=== PATIENT | female | born 1955 | race Caucasian/White ===

== ENCOUNTER → 2017-04-29 | Outpatient (CLI) | payer BC | END | disposition home or self-care (01) | LOC: RAD 08:14 | DX: M25.561 Pain in right knee (principal) ==

== ENCOUNTER → 2019-01-04 | Outpatient (CLI) | payer BC | END | disposition home or self-care (01) | LOC: MAMMO 12-28 10:20 → RAD 12-28 11:00 → MAMMO 09:58 | DX: Z12.31 Encounter for screening mammogram for malignant neoplasm of breast (principal); M19.91 Primary osteoarthritis, unspecified site; E55.9 Vitamin D deficiency, unspecified; Z78.0 Asymptomatic menopausal state ==

== ENCOUNTER → 2020-03-19 | Outpatient (CLI) | payer MEDICARE ==
[~2020-03-19] MED LIST: ASPIRIN81 M1 PO; GLUCOPHAGE500 M1 PO; HYDROCHLOROTHIA25 M1 PO; LEVOTHYROXINE50 MCG PO; OYSTER SHELL 51 EAC1 PO; POTASSIUM CHLO10 MEQ PO; VITAMIN D250 MCG PO
--- NOTE | 2020-03-19 10:30 | NUR ---
INFORMED SIGNED CONSENT OBTAINED FOR CARDIOLITE NUCLEAR STRESS TEST WITH DR MATTHEWS, RESTING EKG NSR HR 69 WITH PVC'S, DOWNSLOPING IN II III, V3-V6, BP 122/64 IN SUPINE POSITION. STANDING HR 109 BP 120/70. PT COMPLETED 4 MINUTES OF A MYA PROTOCOL WITH PT COMPLETING ONE MINUTE OF STAGE II AT 2.5 MPH AND A 12% PT REACHED A PEAK HR OF 148 WHICH REPRESENTS 95% OF PREDICTED MAXIMUM AND A PEAK BP OF 136/78, PVC'S NOTED NO ST CHANGES SEEN. TEST TERMINATED DUE TO FATIGUE, LAST RECOVERY HR OF 112 BP 108/78. PT IN STABLE CONDITION, AWAITING NUCLEAR IMAGES.
== END | disposition home or self-care (01) ==
LOC: CARD 00:07
PROVIDERS: ATTEND Internal Medicine Cardiovascular Disease
DX: R07.9 Chest pain, unspecified (principal)